=== PATIENT | female | born 2000 | race Caucasian/White ===

== ENCOUNTER 2020-03-03 05:37 | Inpatient (IN) | payer OTHER ==
[~2020-03-03] VITALS: Ht 162.6 cm; Wt 79.5 kg
[2020-03-03] VITALS (39 sets, daily range): BP systolic 110–146; BP diastolic 55–87
--- OUTSIDE RECORDS SUMMARY | 2020-03-03 05:41 | XMS REPORT | Continuity of Care Document ---
Author Organization Unknown Address Unknown Phone Unavailable Allergies There is no data. Medications There is no data. Problems There is no data. Procedures There is no data. Results There is no data. Encounters There is no data.
[2020-03-03] MEDS ORDERED: OXYTOCIN PRE-MIX DRIP 500 ML IV SCH ×2 (05:42→13:46)
[2020-03-03] MEDS ORDERED: D5 LR IV SOLUTION 1,000 ML IV SCH (05:42)
[2020-03-03] MEDS ORDERED: MINERAL OIL CONCENTRATE 99.9% 15 ML UDC TOP PRN (05:45)
--- NOTE | 2020-03-03 05:47 | NUR ---
DIANNE SOFIA presented to unit via ambulation from ED, accompanied by s.o. for induction of labor. DIANNE SOFIA weighed, gowned, voided, and to bed. EFHM and TOCO applied, VS taken. DIANNE SOFIA oriented to bed controls, call light, TV, heat, and A/C controls.
[2020-03-03] MEDS ORDERED: CATHETER FLUSH 10 ML SYR IV SCH ×2 (06:00→14:00)
[2020-03-03 07:13] LABS: BASOPHILS % (AUTO) 0 % (0-10); EOSINOPHILS # (AUTO) 0.1 10^3/uL (0.0-0.3); EOSINOPHILS % (AUTO) 1 % (0-10); HEMATOCRIT 37 % (35-52); HEMOGLOBIN 12.6 G/DL (11.5-16.0); LYMPHOCYTES # (AUTO) 1.9 X 10^3 (1.0-4.0); LYMPHOCYTES % (AUTO) 20 % (12-44); MEAN CORPUSCULAR HEMOGLOBIN 30 PG (25-34); MEAN CORPUSCULAR HGB CONC 34 G/DL (32-36); MEAN CORPUSCULAR VOLUME 87 FL (80-99); MEAN PLATELET VOLUME 10.7 FL (7.4-10.4); MONOCYTES # (AUTO) 0.8 X 10^3 (0.0-1.0); MONOCYTES % (AUTO) 8 % (0-12); NEUTROPHILS # (AUTO) 6.7 X 10^3 (1.8-7.8); NEUTROPHILS % (AUTO) 70 % (42-75); PLATELET COUNT 261 10^3/uL (130-400); RED CELL DISTRIBUTION WIDTH 15.8 % (10.0-14.5); WHITE BLOOD COUNT 9.5 10^3/uL (4.3-11.0)
[2020-03-03] MEDS ORDERED: fentaNYL 2 mcg/ml BUPIVA 0.125 100 ML ONE (07:54)
--- NOTE | 2020-03-03 09:18 | History & Physical-OB/GYN ---
History of Present Illness History of Present Illness Reason for visit/HPI Ms. Quintero, A0 at 39 2/7 weeks, presents to Labor & Delivery for Pitocin Induction of Labor Date of Admission Mar 03, 2020 at 05:37 Date Seen by a Provider: Mar 03, 2020 Time Seen by a Provider: 06:55 I consulted on this patient on 03/03/20 09:13 Attending Physician Bernabe Wallis DO Admitting Physician Bernabe Wallis DO Consult Allergies and Home Medications Allergies Coded Allergies: No Known Drug Allergies (Unverified , 03/03/20) Patient Home Medication List Home Medication List Reviewed: Yes Past Obnirhs-Ncramm-Lalbbm Hx Patient Social History Marrital Status: Number of Children: 1 Number of living children: 1 Recent Foreign Travel: No Contact w/other who traveled: No Review of Systems Constitutional: see HPI Physical Exam Physical Exam Vital Signs Vital Signs Date Time Temp Pulse Resp B/P (MAP) Pulse Ox O2 Delivery O2 Flow Rate FiO2 03/03/20 06:27 36.6 82 18 124/65 (84) Room Air Capillary Refill : Labs Laboratory Tests 03/03/20 06:55: White Blood Count 9.5, Red Blood Count 4.25L, Hemoglobin 12.6, Hematocrit 37, Mean Corpuscular Volume 87, Mean Corpuscular Hemoglobin 30, Mean Corpuscular Hemoglobin Concent 34, Red Cell Distribution Width 15.8H, Platelet Count 261, Mean Platelet Volume 10.7H, Neutrophils (%) (Auto) 70, Lymphocytes (%) (Auto) 20, Monocytes (%) (Auto) 8, Eosinophils (%) (Auto) 1, Basophils (%) (Auto) 0, Neutrophils # (Auto) 6.7, Lymphocytes # (Auto) 1.9, Monocytes # (Auto) 0.8, Eosinophils # (Auto) 0.1, Basophils # (Auto) 0.0 General Appearance: No Apparent Distress Respiratory: Chest Non Tender, Lungs Clear, Normal Breath Sounds Cardiovascular: Regular Rate, Rhythm, No Murmur Abdominal: normal bowel sounds, non tender Labia: WNL Cervix: WNL Cervix OS: open (1 cm/50%/-3 Vertex/Intact) Uterus: WNL, Enlarged (Gravid) Extremity: Normal Inspection, Non Tender, No Calf Tenderness, Swelling (Trace edema of lower extremities) Assessment/Plan Assessment and Plan Assessment: Intrauterine at 39 2/7 weeks Plan: Pitocin Induction of labor. Artificial Rupture of Membranes. Epidural Anesthesia. I expect a normal spontaneous vaginal delivery. Admission Diagnosis Admission Status: Inpatient Order (span 2 midnights) Reason for Inpatient Admission: Pitocin Induction of Labor at 39 2/7 weeks Clinical Quality Measures DVT/VTE Risk/Contraindication: Risk Factor Score Per Nursin RFS Level Per Nursing on Admit: 2=Moderate BERNABE WALLIS DO Mar 03, 2020 09:18
[2020-03-03] MEDS ORDERED: LACTATED RINGERS 1,000 ML IV SCH (09:26)
[2020-03-03] MEDS ORDERED: EPIDURAL (fentaNYL 2 MCG/ML BUPIVA 0.125%)100 ML BAG EPI SCH (09:30)
[2020-03-03] MEDS ORDERED: METOCLOPRAMIDE INJ 10 MG/2 ML (REGLAN) IV PRN (09:30)
[2020-03-03] MEDS ORDERED: ONDANSETRON 4 MG/2 ML (SDV) Z0FRAN IV PRN (09:30)
[2020-03-03] MEDS ORDERED: NALOXONE 0.4 MG/ML 1 ML (NARCAN) VIAL IV PRN ×2 (09:30)
[2020-03-03] MEDS ORDERED: diphenhydrAMINE 50 MG/ML INJ (BENADRYL) IV PRN (09:30)
--- NOTE | 2020-03-03 13:51 | OB Labor & Delivery Record ---
Vag Delivery Note Vag Delivery Note Date of Delivery: 03/03/20 Preoperative Diagnosis: Susan Quintero is a (19 /Para / , Gestational Age (39 2/7wks) Postoperative Diagnosis: Same Surgeon: BARBER PONCE Tumbler Plater: [None] Anesthesia: [Epidural] Delivery Type: [Normal Spontaneous Vaginal Delivery] Findings: [Male] Viable [Nake] , apgars [8, 9], weight [6 lb 14 oz] Lacerations: Left periurethral, hemostatic not repaired Intact placenta with 3 vessel cord. No nuchal cord, body cord or shoulder dystocia Estimated Blood Loss: [300] ml Complications: None Condition: Stable Description of Procedure: The patient is a 19 year old female who presented [for Pitocin Induction of Labor]. She was admitted and informed consent was obtained. Her labor course was unremarkable. She progressed to complete dilatation and began to push. She was then set up for delivery. The 's head was delivered atraumatically in the [NATALEE] position. The shoulders and remainder of the infant's body were then delivered without difficulty. Upon delivery, the head was held below the level of the perineum and the mouth and nares were bulb suctioned. The cord was doubly clamped and cut and the infant was handed off to the pediatric staff. An intact placenta with 3-vessel cord delivered via Gill and there was found to be minimal bleeding.~ Vigorous fundal massage was performed and the fundus was found to be firm. IV oxytocin was given. Examination of the vagina and perineum revealed a [left periurethral] laceration, hemostatic, not repaired. Following the repair, sponge, instrument and needle counts were correct. Mom and baby were both in stable condition in the labor suite. Vitals - Labs Vital Signs - I&O Vital Signs Date Time Temp Pulse Resp B/P (MAP) Pulse Ox O2 Delivery O2 Flow Rate FiO2 03/03/20 10:30 36.7 72 18 114/59 (77) 98 Room Air 03/03/20 10:15 71 18 113/56 (75) 97 Room Air 03/03/20 10:05 77 18 113/59 (77) 98 Room Air 03/03/20 10:00 77 18 113/59 (77) 98 Room Air 03/03/20 09:55 73 18 115/59 (77) 98 Room Air 03/03/20 09:50 77 18 115/60 (78) 98 Room Air 03/03/20 09:45 83 18 120/59 (79) 99 Room Air 03/03/20 09:35 85 18 119/67 (84) 98 Room Air 03/03/20 09:30 84 18 124/72 (89) 99 Room Air 03/03/20 09:25 85 18 124/72 (89) 99 Room Air 03/03/20 09:20 88 18 120/75 (90) 100 Room Air 03/03/20 09:10 93 18 132/81 (98) 100 Room Air 03/03/20 08:55 102 18 146/76 (99) Room Air 03/03/20 08:35 72 18 122/69 (86) Room Air 03/03/20 08:20 67 18 131/76 (94) Room Air 03/03/20 08:10 74 18 129/79 (96) Room Air 03/03/20 07:55 87 18 133/84 (100) Room Air 03/03/20 07:35 76 18 120/58 (78) Room Air 03/03/20 07:20 36.6 78 18 126/73 (90) Room Air 03/03/20 06:27 36.6 82 18 124/65 (84) Room Air Labs Laboratory Tests 03/03/20 06:55: White Blood Count 9.5, Red Blood Count 4.25L, Hemoglobin 12.6, Hematocrit 37, Mean Corpuscular Volume 87, Mean Corpuscular Hemoglobin 30, Mean Corpuscular Hemoglobin Concent 34, Red Cell Distribution Width 15.8H, Platelet Count 261, M yulisa Platelet Volume 10.7H, Neutrophils (%) (Auto) 70, Lymphocytes (%) (Auto) 20, Monocytes (%) (Auto) 8, Eosinophils (%) (Auto) 1, Basophils (%) (Auto) 0, Neutrophils # (Auto) 6.7, Lymphocytes # (Auto) 1.9, Monocytes # (Auto) 0.8, Eosinophils # (Auto) 0.1, Basophils # (Auto) 0.0 BARBER PONCE DO Mar 03, 2020 13:51
[2020-03-03] MEDS ORDERED: MEASLES,MUMPS,RUBELLA 1 EA INJ SQ ONE (14:00)
[2020-03-03] MEDS ORDERED: WITCH HAZEL(TUCKS) 40 EA JAR TOP PRN (14:00)
[2020-03-03] MEDS ORDERED: TETANUS,DIPTH,PERTUSS P/F (BOOSTRIX) 0.5 ML VIAL IM ONE (14:00)
[2020-03-03] MEDS ORDERED: BENZOCAINE/MENTHOL (DERMOPLAST) 60 ML CAN TP PRN (14:00)
[2020-03-03] MEDS ORDERED: DIBUCAINE (NUPERCAINAL) 1% OINT 30 GM TOP PRN (14:00)
[2020-03-03] MEDS: IBUPROFEN 800 MG (MOTRIN) TAB PO SCH ×2 (14:43→23:31)
[2020-03-03] MEDS: ACETAMINOPHEN 500 MG TAB (TYLENOL) PO SCH (20:51)
[2020-03-03] MEDS: DOCUSATE SODIUM 100 MG (COLACE) CAP PO SCH (20:51)
[2020-03-04 01:00] VITALS: BP 120/77
[2020-03-04] MEDS: ACETAMINOPHEN 500 MG TAB (TYLENOL) PO SCH ×2 (03:09→09:20)
[2020-03-04 05:00] VITALS: BP 102/63
[2020-03-04 05:20] LABS: BASOPHILS % (AUTO) 0 % (0-10); EOSINOPHILS # (AUTO) 0.2 10^3/uL (0.0-0.3); EOSINOPHILS % (AUTO) 2 % (0-10); HEMATOCRIT 37 % (35-52); HEMOGLOBIN 12.5 G/DL (11.5-16.0); LYMPHOCYTES # (AUTO) 2.4 X 10^3 (1.0-4.0); LYMPHOCYTES % (AUTO) 26 % (12-44); MEAN CORPUSCULAR HEMOGLOBIN 29 PG (25-34); MEAN CORPUSCULAR HGB CONC 33 G/DL (32-36); MEAN CORPUSCULAR VOLUME 88 FL (80-99); MEAN PLATELET VOLUME 10.6 FL (7.4-10.4); MONOCYTES # (AUTO) 0.8 X 10^3 (0.0-1.0); MONOCYTES % (AUTO) 8 % (0-12); NEUTROPHILS # (AUTO) 5.9 X 10^3 (1.8-7.8); NEUTROPHILS % (AUTO) 64 % (42-75); PLATELET COUNT 251 10^3/uL (130-400); RED CELL DISTRIBUTION WIDTH 16.2 % (10.0-14.5); WHITE BLOOD COUNT 9.4 10^3/uL (4.3-11.0)
[2020-03-04] MEDS ORDERED: ACET-93 PO (06:57)
[2020-03-04] MEDS ORDERED: IBUP-1780 PO (06:57)
[2020-03-04] MEDS ORDERED: DCS100C PO (06:57)
[2020-03-04] MEDS ORDERED: OXYC5TAB96 PO (06:57)
[2020-03-04] MEDS ORDERED: PRENATAL VITAMIN 1 EA TAB PO SCH (07:00)
--- NOTE | 2020-03-04 07:03 | Discharge Summary ---
Diagnosis/Chief Complaint Date of Admission Mar 03, 2020 at 05:37 Date of Discharge March 04, 2020 Discharge Date: Mar 04, 2020 Discharge Time: 14:00 Admission Diagnosis Admission Diagnosis Intrauterine at 39 2/7 Discharge Diagnosis Intrauterine at 39 2/7--delivered Reason Hospital Visit Ms. Quintero, A0 at 39 2/7 weeks, presents to Labor & Delivery for Pitocin Induction of Labor Discharge Summary Hospital Course Was the Problem List Reviewed?: Yes Hospital Course Ms. Quintero, G1 now P1 was admitted to the hospital at 39 2/7 weeks for Pitocin Induction of Labor. She progressed to complete and delivered a healthy viable . she was placed on oral pain medications and other comfort measures. Her vital signs remained stable throughout her hospitalization. The remainder of her hospitalization was unremarkable. We will discharge her to home with instructions, prescriptions, and a follow up appointment. Labs Laboratory Tests 03/03/20 06:55: Red Blood Count 4.25L, Red Cell Distribution Width 15.8H, Mean Platelet Volume 10.7H 03/04/20 04:59: Red Blood Count 4.26L, Red Cell Distribution Width 16.2H, Mean Platelet Volume 10.6H Procedures None. Discharge Physical Examination Allergies: Coded Allergies: No Known Drug Allergies (Unverified , 03/03/20) Vitals & I&Os Vital Signs Date Time Temp Pulse Resp B/P (MAP) Pulse Ox O2 Delivery O2 Flow Rate FiO2 03/04/20 05:00 36.8 67 16 102/63 (76) 99 Room Air General Appearance: Alert, Oriented X3, Cooperative HEENT: Atraumatic Respiratory: Clear to Auscultation, Normal Air Movement Cardiovascular: Regular Rate, No Murmurs Abdominal: Normal Bowel Sounds Extremities: No Clubbing, No Cyanosis, No Edema Skin: No Rashes Neuro: Normal Gait, Normal Speech, Strength at 5/5 X4 Ext Psych/Mental Status: Mental Status NL Discharge Home Medications Reviewed and agree with Discharge Medication list on patient's Discharge Instruction sheet Instructions to Patient/Family Please see electronic discharge instructions given to patient. Clinical Quality Measures DVT/VTE Risk/Contraindication: Risk Factor Score Per Nursin RFS Level Per Nursing on Admit: 2=Moderate BARBER PONCE DO Mar 04, 2020 07:02
--- NOTE | 2020-03-04 07:15 | Anesthesia-Regional Post-Op ---
Regional Patient Condition Mental Status: Alert, Oriented x3 Circulation: Same as Pre-Op Headache: Absent Sensation: Full Recovery Motor Block: Absent Post Op Complications Complications None Follow Up Care/Instructions Patient Instructions None needed. Anesthesia/Patient Condition Patient is doing well, no complaints, stable vital signs, no apparent adverse anesthesia problems. No complications reported per nursing. [place] [facility] [place] THAI ROBERTS CRNA Mar 04, 2020 07:15
[2020-03-04 07:45] VITALS: BP 122/82
[2020-03-04] MEDS: IBUPROFEN 800 MG (MOTRIN) TAB PO SCH (07:46)
[2020-03-04] MEDS: DOCUSATE SODIUM 100 MG (COLACE) CAP PO SCH (09:20)
--- NOTE | 2020-03-04 09:45 | NUR ---
DC instructions given to and explained to patient and SO using language line person investigator. Pt verbalizes understanding and denies questions at this time. RX x4 given to pt and placed in red DC folder. Pt understands that she is no longer a patient however cannot leave for home until DC instructions are received for . Nursery RN will be in later today for DC instructions after is 24 hrs old. Pt will be considered as rooming in at this time.
== END 2020-03-04 09:45 | disposition home or self-care (01) | DRG 807 ==
LOC: LDRP 05:37
PROVIDERS: ADMIT Obstetrics & Gynecology; ATTEND Obstetrics & Gynecology
PROC: 10E0XZZ Delivery of Products of Conception, External Approach (ICD-10-PCS; principal; 2020-03-03)
PROC: 3E033VJ Introduction of Other Hormone into Peripheral Vein, Percutaneous Approach (ICD-10-PCS; 2020-03-03)
DX: O71.82 Other specified trauma to perineum and vulva (principal); Z37.0 Single live birth; Z3A.37 37 weeks gestation of pregnancy
CPT/HCPCS: 36415; 85025; 86850; 86900; 86901; 90715